=== PATIENT | male | born 1955 | race Hispanic/Latino ===

== ENCOUNTER 2021-05-10 07:11 | Day surgery (SDC) | payer BC ==
[2021-05-10] MEDS ORDERED: SODIUM CHLORIDE 0.9% 500 ML 500 ML IV SCH (09:00)
--- NOTE | 2021-05-10 09:20 | Short Stay Summary ---
Short Stay Documentation Date of service: 05/10/21 - History Principal diagnosis: CAD H&P: obtained from office Past Medical History: CAD, hypertension, hyperlipidemia Past Surgical History: CABG (x3) Social history: alcohol abuse (occasional), no smoking - Allergies and Medications Current Medications: Allergies No Known Allergies Allergy (Unverified 05/10/21 08:15) Active Medications Aspirin (Aspirin 81 Mg Tab Chew) 81 mg PO QDAY JEN Stop: 05/10/21 16:00 Sodium Chloride (Nacl 0.9% 500 Ml) 500 mls @ 50 mls/hr IV DIRECT JEN Stop: 05/10/21 18:59 - Physical exam General appearance: no acute distress Integumentary: no rash HEENT: Atraumatic, EOMI, Mucous membr. moist/pink, Other (R radial & R groin - clean/dry/intact, no bleeding or hematoma) Lungs: Clear to auscultation Heart: Normal S1, Normal S2, No murmurs Gastrointestinal: normal Extremities: pulses intact, No edema, normal temperature Neurological: Normal speech, Normal tone, Sensation intact - Brief post op/procedure progress note Date of procedure: 05/10/21 Pre-op diagnosis: CAD Post-op diagnosis: same Surgeon: KATHERINE VASQUEZ Estimated blood loss: none Pathology: none Condition: stable - Hospital course Hospital course: Pt presented for elective LHC, which revealed severe 3-vessel disease with patent grafts, normal LV systolic fxn. See cath report for detailed findings. Medical mgmt recommended. Pt tolerated procedure well. Currently stable with no complaints. Follow-up with Dr. Vasquez in 1-2 weeks ([phone]). - Disposition Condition at discharge: Good Disposition: 01 HOME / SELF CARE / HOMELESS - Discharge Diagnoses (1) CAD (coronary artery disease) Status: Chronic (2) S/P CABG (coronary artery bypass graft) Status: Chronic (3) HTN (hypertension) Status: Chronic (4) HLD (hyperlipidemia) Status: Chronic Short Stay Discharge Plan Activity: advance as tolerated Diet: low fat, low cholesterol, low salt Wound: per your surgeon's advice Additional Instructions: Follow up with PCP in 1 week, return to emergency room for medical emergency. Follow up with: PRIMARY MD RAINA [Primary Care Provider] - 7 Days KATHERINE VASQUEZ MD [Staff Physician] - 7 Days Forms: [employer] PCI D/C Instructions
[2021-05-10 09:21] LABS: Basophils % (Auto) 0.4 % (0.0-1.8); Eosinophils # (Auto) 0.3 K/mm3 (0.0-0.4); Eosinophils % (Auto) 3.8 % (0.0-4.3); Hematocrit 44.7 % (35.5-45.6); Hemoglobin 15.6 gm/dl (11.8-15.2); Lymphocytes # (Auto) 2.3 K/mm3 (1.2-5.4); Lymphocytes % (Auto) 30.1 % (13.4-35.0); Mean Corpuscular HGB Conc 35 % (32-34); Mean Corpuscular Volume 97 fl (84-94); Monocytes # (Auto) 1.1 K/mm3 (0.0-0.8); Platelet Count 213 K/mm3 (140-440); Red Blood Count 4.62 M/mm3 (3.65-5.03)
[2021-05-10 09:24] LABS: BUN/Creatinine Ratio 24; Blood Urea Nitrogen 26 mg/dL (9-20); Calcium 9.2 mg/dL (8.4-10.2); Hemolysis Index 19
[2021-05-10] MEDS ORDERED: HEPARIN/NS 5000 UNIT/500ML 1,000 ML IR ONE (09:24)
[2021-05-10] MEDS: MIDAZOLAM 2 MG/2 ML INJ ONE ×3 (09:41→10:36)
[2021-05-10] MEDS: fentaNYL 100 MCG/2 ML INJ ONE ×3 (09:41→10:36)
[2021-05-10] MEDS: LIDOCAINE (2%) 20 MG/1 ML VIAL 20 ML MDV INFILTRATI ONE ×4 (09:41→10:41)
[2021-05-10] MEDS ORDERED: ASPIRIN 81 MG TAB CHEW PO SCH (10:00)
[2021-05-10 10:07] LABS: INR 0.94 (0.87-1.13)
[2021-05-10] MEDS ORDERED: VERAPAMIL 5 MG/2 ML INJ ONE (10:29)
[2021-05-10] MEDS ORDERED: HEPARIN 10,000 UNITS/10 ML VIAL ONE (10:29)
[2021-05-10] MEDS ORDERED: HEPARIN/NS 5000 UNIT/500ML 500 ML IR ONE (10:35)
[2021-05-10] MEDS ORDERED: HYDROcodone/ACETAMINOPHEN 5-325 MG TAB PO PRN (11:29)
[2021-05-10] MEDS ORDERED: traMADol 50 MG TAB PO PRN (11:29)
--- NOTE | 2021-05-10 12:26 | Cardiac Catherization Report ---
DATE OF SERVICE: 05/10/2021 INDICATIONS: The patient is a 65-year-old white gentleman with history of bypass surgery done in 05/2002 with left internal mammary to the first and second obtuse marginal branches sequentially, right internal mammary graft to the mid LAD, and a radial graft to the PDA. 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 The patient is not having any symptoms. However, stress nuclear imaging showed significant anterior ischemia, which is reversible. Hence, scheduled for cardiac catheterization for definitive diagnosis and treatment. The patient is aware of the procedure, potential complications, and alternatives of therapy available. DESCRIPTION OF PROCEDURE: The patient was brought to the catheterization laboratory in a fasting condition. He was evaluated for moderate sedation and felt to be a candidate for moderate sedation and received IV Versed and fentanyl. Subsequently, initially right groin was prepared and right groin access was obtained under fluoroscopy using a 5-Niuean micropuncture needle. A 6-Niuean sheath was introduced. A 6-Niuean multipurpose catheter was used to obtain the angiograms of the right and left coronary arteries in multiple views and angiograms of the radial graft to the PDA. Also, left ventriculogram was performed in EUGENE projection using hand injection. Subsequently, left internal mammary angiograms were obtained using a femoral approach. Difficult to selectively inject the right internal mammary graft. Hence, access was changed to right radial artery and after applying sterile technique and accessing the right radial artery, a 5-Niuean slender sheath was introduced. Angiograms of the right internal mammary graft were obtained using the mammary catheter. They are still subselective, but diagnostic. At the end of the procedure, catheters were removed. The patient tolerated the procedure well. The patient was monitored throughout the procedure with pulse oximetry, EKG monitoring and hemodynamic monitoring. The patient at the end of the procedure is breathing normally, communicating normally with no focal deficits. The patient's moderate sedation monitoring started at 9:48 a.m. and ended at 10:51 a.m. No untoward complications were noted from moderate sedation. Manual pressure being applied for the right groin and a radial sheath will be applied to the right radial artery. Following findings were noted. HEMODYNAMICS: Opening aortic pressure 145/70. Left ventricular pressure 142/21. No gradient across the aortic valve. Left ventriculogram done in EUGENE projection showed normal-sized left ventricle with normal contractility. End-diastolic, end-systolic volumes are normal. Mitral regurgitation could not be evaluated because of limited amount of dye injected. Right coronary artery is a dominant vessel, is occluded at the ostium with no antegrade visualization of the vessel. Similarly, left coronary artery is occluded at the ostium of the LAD and circumflex artery with only left atrial branch and small diagonal branches. Ramus branch visualized. These are small caliber vessels. No visualization of the LAD or marginal branches on ekuk coronary injection. Radial graft to the PDA is widely patent, PDA itself without significant disease. Left internal mammary graft sequentially to the anterolateral obtuse marginal branch and posterolateral obtuse marginal branch is patent and distally these 2 marginal branches are without significant disease. Similarly, right internal mammary graft is attached to the mid LAD, graft itself appears normal with LAD itself showing no significant disease. COLLATERALS: None. FINAL IMPRESSION: Severe triple vessel disease with widely patent grafts to all the vessels, normal left ventricular function. The patient presently is not having any symptoms. The patient's abnormal nuclear imaging may be secondary to non-revascularized vessels; however, these appear to be small vessels,small diagonalat this point. Considering the above, would be continued on medical therapy and risk factor modification. The patient tolerated the procedure well. No untoward complications were noted. The patient will be monitored until good hemostasis is achieved in the right groin and right radial artery for the next 3-4 hours. Findings were explained to the patient in detail. TID: [id number] RECEIPT: [id number] ESTRELLA/SAMI/BRANDAN SIMS
[2021-05-10 17:02] VITALS: BP 125/86
--- NOTE | 2021-05-14 14:29 | Electrocardiograph Report ---
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
== END 2021-05-10 07:12 | disposition home or self-care (01) ==
LOC: CATHLABREC 07:11
PROVIDERS: ATTEND Internal Medicine
DX: R94.30 Abnormal result of cardiovascular function study, unspecified (principal); R94.31 Abnormal electrocardiogram [ECG] [EKG]; I10 Essential (primary) hypertension; I25.10 Atherosclerotic heart disease of native coronary artery without angina pectoris; E78.00 Pure hypercholesterolemia, unspecified; Z82.49 Family history of ischemic heart disease and other diseases of the circulatory system; Z79.899 Other long term (current) drug therapy; Z98.890 Other specified postprocedural states; Z79.82 Long term (current) use of aspirin; Z95.1 Presence of aortocoronary bypass graft
CPT/HCPCS: 36415; 80048; 85025; 85610; 85730; 93005; 93459; 99156; 99157; C1769; C1887; C1894; J1644; J2250; J3010; J7040; Q9967